=== PATIENT | female | born 1985 | race Caucasian/White ===

== ENCOUNTER → 2018-02-28 | Outpatient (CLI) | payer OTHER ==
--- NOTE | 2018-03-01 09:59 | RADIOLOGY IMAGING REPORT ---
FACILITY: [facility] [place] PATIENT NAME: BONI MANCIA : [id number] MR: [id number] V: [id number] EXAM DATE: [id number] ORDERING PHYSICIAN: CHAYA HANSON TECHNOLOGIST: Michael Ross PROCEDURE:US RIGHT BREAST COMPARISON:None. INDICATIONS:RT BREAST LUMP@10:00 FINDINGS: Right breast was imaged in the 9-12 o'clock position revealing no sonographic abnormality therefore clinical follow-up is recommend for patient's palpable findings. DIAGNOSTIC CATEGORY 2--BENIGN FINDING. RECOMMENDATIONS: CLINICAL EVALUATION. IMPRESSION: BIRADS 2: Benign finding No sonographic or mammographic abnormality identified to account for patient's palpable findings in the 10 o'clock position of the Right breast therefore clinical follow-up recommended. Dictated by: Courtney Wild M.D. on 02/28/2018 at 16:43 Transcribed by: CLOTILDE on 03/01/2018 at 8:18 Approved by: Courtney Wild M.D. on 03/01/2018 at 9:58 [facility]
--- NOTE | 2018-03-01 09:59 | RADIOLOGY IMAGING REPORT ---
FACILITY: [facility] [place] PATIENT NAME: BONI MANCIA : [id number] MR: [id number] V: [id number] EXAM DATE: ORDERING PHYSICIAN: CHAYA HANSON TECHNOLOGIST: Brittany Dolan PROCEDURE:BILATERAL DIAGNOSTIC DIGITAL MAMMOGRAM WITH CAD ASSISTED INTERPRETATION & 3D TOMOSYNTHESIS COMPARISON:None. INDICATIONS:RT BREAST LUMP @ 10:00 FINDINGS: A small amount of fibroglandular tissue is seen throughout the breasts. The parenchymal pattern has remained stable allowing for difference in mammographic technique & patient positioning. There is no evidence of malignant appearing mass, malignant appearing calcifications or other secondary sign of malignancy in either breast. Today's Right breast Ultrasound also revealed no abnormality therefore clinical follow-up is recommended. DIAGNOSTIC CATEGORY 2--BENIGN FINDING. RECOMMENDATIONS: CLINICAL EVALUATION. IMPRESSION: BIRADS 2: Benign finding No significant abnormality is identified therefore clinical follow-up is recommended for patient's palpable findings in the 10 o'clock position of the Right breast. Dictated by: Courtney Wild M.D. on 02/28/2018 at 16:42 Transcribed by: CLOTILDE on 03/01/2018 at 8:13 Approved by: Courtney Wild M.D. on 03/01/2018 at 9:58 [facility]
== END ==
LOC: US 09:16
PROVIDERS: ATTEND Nurse Practitioner Family
DX: N63.11 Unspecified lump in the right breast, upper outer quadrant (principal)
CPT/HCPCS: 77066